=== PATIENT | female | born 1965 | race Caucasian/White ===

== ENCOUNTER → 2022-02-05 12:31 | Outpatient (BNVA) | payer MEDICARE, MEDICAID, SELFPAY | PROVIDERS: PCP Family Medicine; Referring Provider Family Medicine; Visit Provider Nurse Practitioner Adult Health | DX: G56.03 Carpal tunnel syndrome, bilateral upper limbs (principal) | CPT/HCPCS: 95909; 99203 ==

== ENCOUNTER → 2023-02-06 01:06 | Outpatient (CLI) | payer MEDICARE, MEDICAID, SELFPAY ==
--- NOTE | 2023-02-06 | DI.CTLCSR_ITS ---
Exam(s) CT CHEST LUNG CANCER SCREEN EXAM: CT CHEST LUNG CANCER SCREEN CLINICAL HISTORY: CURRENT SMOKER, F17.210, SCREENING FOR LUNG CANCER. TECHNIQUE: Imaging Protocol: Low Dose Technique CONTRAST MATERIAL: None COMPARISON: No prior chest exams were available for comparison FINDINGS: CHEST: LUNGS: There is bilateral interstitial fibrosis. There is associated peripheral honeycombing in both lungs, predominantly lower lobe but also involving right upper lobe and right middle lobe.. There a re no confluent infiltrates. Fusions. No focal findings in the trachea and mainstem bronchi. Mild bronchiectasis noted bilaterally. No ominous pulmonary nodules. MEDIASTINUM: There is no obvious hilar nor mediastinal adenopathy. CARDIAC: Heart size is normal. There is no pericardial effusion.Caliber of thoracic aorta is upper n ormal. Moderate coronary artery calcifications noted. OTHER: No adrenal masses. OSSEOUS: No significant osseous lesions.No fractures evident.. IMPRESSION: 1. Bilateral pulmonary fibrosis with honeycombing pattern. 2. However, there are no ominous pulmonary nodules, confluent infiltrates, nor pleural effusions. 3. Lung RADS Cat 2 - Benign Appearance / Behavior: Nodules with a very low likelihood of becoming a c linically active cancer due to size or lack of growth Lung-RADS 1.0 CATEGORIES: Category 0 - Prior chest CT exam(s) being located for comparison. Category 1 - Annual screening in 12 months. No nodules or definitely benign nodules. Category 2 - Annual screening in 12 months. Benign appearance. Nodules with low likelihood of becomin g active cancer. Category 3 - 6-month follow-up. Probably benign. Short-term follow-up suggested. Nodules with low lik elihood of becoming active cancer. Category 4A - 3-month follow-up and CT/PET if >8 mm in size. Suspicious finding. Findings which requi re additional testing. Category 4B - Findings which require additional testing and tissue sampling. Category 4X - Category 3 or 4 nodules with additional features or imaging findings that increases the suspicion of malignancy. Modifier S- Potentially clinically significant findings (non lung cancer) RADIATION DOSE DELIVERED: Total DLP DATA REPOSITORY: All CT scans at this facility are submitted to the National Radiology Data Registry (NRDR) Dose Index Registry (DIR) with the [employer] (A[employer]). RADIATION OPTIMIZATION: All CT scans at this facility use at least one of these dose optimization te chniques: automated exposure control; mA and/or kV adjustment per patient size (includes targeted exa ms where dose is matched to clinical indication); or iterative reconstruction.
== END ==
PROVIDERS: PCP Family Medicine; Visit Provider Family Medicine
DX: F17.210 Nicotine dependence, cigarettes, uncomplicated (principal); Z12.2 Encounter for screening for malignant neoplasm of respiratory organs; J84.10 Pulmonary fibrosis, unspecified
CPT/HCPCS: 71271

== ENCOUNTER → 2023-02-26 08:06 | Outpatient (BNVA) | payer MEDICARE, MEDICAID, SELFPAY | PROVIDERS: PCP Family Medicine; Referring Provider Family Medicine; Visit Provider Physician Assistant Surgical ==

== ENCOUNTER 2023-02-26 11:17 | Outpatient (CLI) | payer MEDICARE, MEDICAID, SELFPAY ==
[2023-02-26 10:53] LABS: TSH (W/Ref FT4) 1.79 uIU/mL (0.36-3.74)
[2023-02-26 19:19] LABS: Rheumatoid Factor <8.6 IU/mL (<12.0)
[2023-02-26 20:15] LABS: Thyroglobulin Antibody >500 U/mL (<=60)
[2023-02-27 09:49] LABS: Cyclic Citrullinated Peptide <2.5 U/mL (<5.0)
[2023-02-27 12:48] LABS: ANA Interpretation Negative (Negative)
[2023-02-27 18:19] LABS: Myeloperoxidase Ab IgG <0.2 U; Proteinase 3 Ab (PR3) <0.2 U
== END 2023-02-26 11:18 | disposition home or self-care (01) ==
PROVIDERS: PCP Family Medicine; Visit Provider Physician Assistant Surgical
DX: J84.9 Interstitial pulmonary disease, unspecified (principal); E06.3 Autoimmune thyroiditis
CPT/HCPCS: 36415; 86200; 99215; 83516; 84443; 86038; 86431; 86606; 86800

== ENCOUNTER → 2023-03-25 09:46 | Outpatient (BNVA) | payer MEDICARE, MEDICAID, SELFPAY | PROVIDERS: PCP Family Medicine; Referring Provider Family Medicine; Visit Provider Student in an Organized Health Care Education/Training Program | DX: J84.112 Idiopathic pulmonary fibrosis (principal); Z51.81 Encounter for therapeutic drug level monitoring; Z87.891 Personal history of nicotine dependence | CPT/HCPCS: 99215 ==

== ENCOUNTER → 2023-05-13 12:54 | Outpatient (BNVA) | payer MEDICARE, MEDICAID, SELFPAY | PROVIDERS: PCP Family Medicine; Referring Provider Family Medicine; Visit Provider Student in an Organized Health Care Education/Training Program | DX: M79.641 Pain in right hand (principal); M79.642 Pain in left hand | CPT/HCPCS: 99213 ==

== ENCOUNTER → 2023-05-13 13:58 | Outpatient (BNVA) | payer MEDICARE, MEDICAID, SELFPAY | PROVIDERS: PCP Family Medicine; Referring Provider Family Medicine; Visit Provider Student in an Organized Health Care Education/Training Program | DX: J44.9 Chronic obstructive pulmonary disease, unspecified (principal); J84.112 Idiopathic pulmonary fibrosis; Z87.891 Personal history of nicotine dependence | CPT/HCPCS: 99215 ==

== ENCOUNTER 2023-06-11 11:35 | Outpatient (CLI) | payer MEDICARE, MEDICAID, SELFPAY ==
--- NOTE | 2023-06-11 10:45 | DI.RAD_ITS ---
Exam(s) XR SHOULDER LT COMPLETE 2+V EXAM: XR SHOULDER LT COMPLETE 2+V CLINICAL HISTORY: BILATERAL SHOULDER PAIN. TECHNIQUE: 2D digital imaging was performed. Two views. COMPARISON: MR MRI LEFT JNT UPPER W/O CONTRAST from 01/06/2022 FINDINGS: The AP view is limited by overlap of the ribs over the shoulder. BONES: No acute fracture is present. No bony destructive lesion is seen. JOINTS: No dislocation present. No glenohumeral joint space narrowing. AC joint not well profiled. SOFT TISSUE: Normal. IMPRESSION: Unremarkable radiographs of the left shoulder. DATA REPOSITORY: RADIATION DOSE DELIVERED:
--- NOTE | 2023-06-11 10:45 | DI.RAD_ITS ---
Exam(s) XR SHOULDER RT COMPLETE 2+V EXAM: XR SHOULDER RT COMPLETE 2+V CLINICAL HISTORY: BILATERAL SHOULDER PAIN. TECHNIQUE: 2D digital imaging was performed. Two views. COMPARISON: CR XR SHOULDER LT COMPLETE 2+V from 06/11/2023 FINDINGS: The AP view is limited by overlap of the ribs over the shoulder. BONES: No acute fracture is present. No bony destructive lesion is seen. JOINTS: No dislocation present. SOFT TISSUE: Normal. IMPRESSION: Unremarkable radiographs of the right shoulder. DATA REPOSITORY: RADIATION DOSE DELIVERED:
== END 2023-06-11 11:36 | disposition home or self-care (01) ==
LOC: DIORS 11:35
PROVIDERS: PCP Family Medicine; Referring Provider Family Medicine; Visit Provider Student in an Organized Health Care Education/Training Program
DX: M25.512 Pain in left shoulder; M75.101 Unspecified rotator cuff tear or rupture of right shoulder, not specified as traumatic
CPT/HCPCS: 99214; 73030

== ENCOUNTER → 2023-07-08 02:42 | Outpatient (CLI) | payer MEDICARE, MEDICAID, SELFPAY ==
--- NOTE | 2023-07-08 07:45 | DI.MRI_ITS ---
Exam(s) MR UPPER JOINT RT WO EXAM: MR UPPER JOINT RT WO CLINICAL HISTORY: R SHOULDER PAIN,rt rotator cuff tear,m75.101. TECHNIQUE: Multiplanar multisequence MRI was performed. COMPARISON: Plain films 11 June 2023 FINDINGS: BONES: There is no fracture or contusion pattern. JOINTS:The acromioclavicular joint shows moderate degenerative changes. Is high signal within the yesica int. The glenohumeral joint is normal. TENDONS: Supraspinatus: Thickening and edema. No focal tear. Infraspinatus: Unremarkable. Subscapularis: Unremarkable. Teres Minor: Unremarkable. Biceps and [place]: Unremarkable. MUSCLES: Unremarkable. GLENOID LABRUM: Unremarkable on this noncontrast examination. SOFT TISSUES: Unremarkable. OTHER: Subacromial and subdeltoid bursae shows focal fluid beneath the level of the AC joint and acr omion. Small amount of fluid in subcoracoid bursa.. IMPRESSION: Degenerative changes of the AC joint with fluid. Subjacent fluid collection with some impingement on the supraspinatus muscle. Supraspinatus tendinosis. DATA REPOSITORY:
--- NOTE | 2023-07-08 07:45 | DI.MRI_ITS ---
Exam(s) MR UPPER JOINT LT WO EXAM: MR UPPER JOINT LT WO CLINICAL HISTORY: L SHOULDER PAIN,pain lt ac joint, m25.512. TECHNIQUE: Multiplanar multisequence MRI was performed. COMPARISON: Plain films 11 June 2023 FINDINGS: BONES: There is no fracture or contusion pattern. Degenerative signal changes in the superior humer al head. JOINTS:The acromioclavicular joint shows minimal degenerative changes. No significant fluid. The gl enohumeral joint is normal. TENDONS: Supraspinatus: Mild thickening and edema distally consistent with tendinosis. Infraspinatus: Unremarkable. Subscapularis: Unremarkable. Teres Minor: Unremarkable. Biceps and [place]: Unremarkable. MUSCLES: Unremarkable. GLENOID LABRUM: Unremarkable on this noncontrast examination. SOFT TISSUES: Unremarkable. OTHER: Subacromial and subdeltoid bursae shows a small amount of fluid. . Fluid in subcoracoid burs a. IMPRESSION: Fluid in the subacromial subdeltoid bursa and coracoid bursa. Findings could indicate bursitis. AC joint is unremarkable. Supraspinatus tendinosis. DATA REPOSITORY:
== END ==
PROVIDERS: PCP Family Medicine; Visit Provider Student in an Organized Health Care Education/Training Program
DX: M67.813 Other specified disorders of tendon, right shoulder (principal); M67.814 Other specified disorders of tendon, left shoulder
CPT/HCPCS: 73221

== ENCOUNTER → 2023-07-16 08:29 | Outpatient (BNVA) | payer MEDICARE, MEDICAID, SELFPAY | PROVIDERS: PCP Family Medicine; Referring Provider Family Medicine; Visit Provider Student in an Organized Health Care Education/Training Program | DX: M19.011 Primary osteoarthritis, right shoulder (principal); M75.112 Incomplete rotator cuff tear or rupture of left shoulder, not specified as traumatic | CPT/HCPCS: 99214 ==